=== PATIENT | male | born 1960 | race Caucasian/White ===

== ENCOUNTER 2019-01-28 17:00 | Outpatient (RCR) | payer BC, SELFPAY ==
--- NOTE | 2018-11-12 18:19 | HP.OTEVAL ---
Patient's Visit Information NAKIA BATEMAN is a 57 year old M, referred to Occupational Therapy by LEONEL Figueroa, with a diagnosis of Rt sided weakness. Date of Evaluation: 11/12/18 Occupational Therapist: Veronica Reeves - Subjective Subjective: Pt seen for initial occupational therapy evaluation for R side weakness after suffering ischemic stroke 09/08/18. Pt spent 32 days at [facility] facility then returned home w/ spouse and had home health therapy for 2.5 wks then started outpatient PT services. Pt lives w/ spouse in split level home 4 steps to enter bilateral handrails. Pt remaining on main level of home. Pt requires MIN to MOD A with BADLs at this time. Tub/shower w/ shower chair, grab bars, HHS. Comfort height commode. Pt has 24hr assist to assist with IADLs. Hobbies; E[employer] shopping, bike riding. R hand dominent. Pt has anxiety and has been taking [place] before all therapy sessions do to feeling confind with his R arm is wrapped or leg wrapped and not liking that feeling. - Objective Objective/Observation: limited ROM and strength and functional use of R arm. - ROM Shoulder: L WFL, R AROM flexion 20', abduction 10', R PROM flexion 70' abduction 50' Elbow: L WFL, R AROM -3/45', PROM 0/130' Wrist: L 47/94, R AROM 0/10', R PROM WFL ROM Comments: Pt has increased pain with PROM/AROM shoulder all planes. Pt states hx R shoulder sx yrs ago with limited AROM prior, but not as much as now. Pt unable to complete R AROM all digits R hand, PROM WFL R hand. - Strength Supervisor Display Fabrication: R 0#, L 90# Lateral Pinch: R 0#, L 16# Tripod Pinch: R 0#, L 16# - Edema Other: No edema noted - Sensation Sensation Comments: Slight numbness R hand and digits. Comes and goes inconsistant - Quick DASH-Disab of Arm,Shoulder& Hand Quick DASH Score: 77.2725 - Goals Goal:: Pt will progress w/ R hand on site manager strength by 15# to assist with self feeding tasks independently. Goal:: Pt will progress w/ R elbow AROM flexion by 50' to assist with UB dressing tasks independently. Pt will progress w/ R AROM wrist extension by 20' to assist with grooming tasks independently. Pt will progress w/ R shoulder AROM flexion by 50' to assist with BADLs by d/c from OT services. Goal:: Pt will be educated on appropriate HEP with good understanding and demo 100%x - Rehabilitation General Assessment: Pt demo decreased functional use of R hand s/p CVA. Pt demo decreased AROM/PROM R shoulder, elbow, wrist and hand. Pt demo decreased strength and indep w/ BADLs. Pt would benefit from direct occupational therapy services to increase ROM R UE, increase strength R UE shoulder, elbow, wrist/hand, educate on HEP, increase indep w/ BADLs to increase pts quality of life 2-3x/wk x 6wks Rehabilitation Potential: Good - Anticipated Interventions Anticipated Interventions: A/AAROM/PROM, Strengthening, Massage, Modalities, Orthoses, Joint Protection/Energy Conservation, Fine Motor Coord/Venkata, Neuro Reeducation, ADL Training, Education re assistive Equipment, Education re Diagnosis, Caregiver Training, Home Program - Visit Plan Frequency: 2-3x /Week Duration: 6 Weeks General Plan: increase ROM R UE, increase strength R UE shoulder, elbow, wrist/hand, educate on HEP, increase indep w/ BADLs TEXT: Thank you for the opportunity to evaluate your patient. For Medicare and Medicare HMO plans, please review the plan of care and approve it. It will need to be FAXED BACK to us at [phone] for Medicare purposes. Please let me know if there are questions or concerns regarding this plan of care. Physician Signature: Date:
--- NOTE | 2018-12-16 08:51 | OTREVAL_ITS ---
Ariela Little, CHEL-C, It has been my pleasure to treat NAKIA BATEMAN over the last 8 visits for Rt sided weakness. Please see the progress note below for an update on the occupational therapy plan of care! Subjective: Pt arrived stating doing well, has PT today too. Pt states has been doing variety of arm exerices, stretches and weightbearing R arm at home. Objective/Function: Completed OT Re-eval Pt making good progress with OT goals and demo increased independence with BADL tasks. Pt able to use R hand to hold jacket to assist with zipping tasks, continuing to require assist, but not dependent for task anymore. Pt able to grasp water bottle with R hand to use L hand to open lid using legs to support the bottle. Pt continues to require assist with all BADL tasks. Pt continues to have pain with ROM R shoulder but pain has minimized since inital evaluation. Pt progressing with ability to piter/doff his jacket with decreased amount of time needed and increased AROM of his R UE. Pt has progressed with AROM R shoulder flexion from initial evaluation 20' to 55' and R shoulder abduction from 10' to 52'. PROM R shoulder flexion from 70' to 73' and PROM R shoulder abduction 50' to 89'. R AROM elbow flexin from 45' to 112'. Pt continues to demo decreased functional use of R UE, decreased AROM and strength R UE and decreased independence with BADL tasks all indicating a need for continued skilled OT services to increase R UE AROM all joints, RUE strength, continue working on NDT R UE to increase functional use of R UE and independence with BADL tasks involving R UE to increase pts quality of life. 2-3x/wk for 6wks. Plan Frequency: 2-3x /Week Duration: 6 Weeks Plan: Would like to continue with OT services. Goals - Goals Goal:: Pt will progress w/ R hand hide and skin fleshing machine operator strength by 15# to assist with self feeding tasks independently. Goal:: Pt will progress w/ R elbow AROM flexion by 50' to assist with UB dressing tasks independently. Pt will progress w/ R AROM wrist extension by 20' to assist with grooming tasks independently. Pt will progress w/ R shoulder AROM flexion by 50' to assist with BADLs by d/c from OT services. Goal:: Pt will be educated on appropriate HEP with good understanding and demo 100%x Goal:: Pt will be able to piter/doff jacket w/ set up by d/c from OT services. Anticipated Interventions Anticipated Interventions: A/AAROM/PROM, Strengthening, Massage, Modalities, Orthoses, Joint Protection/Energy Conservation, Fine Motor Coord/Venkata, Neuro Reeducation, ADL Training, Education re assistive Equipment, Education re Diagnosis, Caregiver Training, Home Program Please do not hesitate to contact me at [phone] by phone or if you have questions or concerns regarding this new plan of care! Sincerely, Veronica Reeves
--- NOTE | 2018-12-29 13:19 | HP.OTCOM ---
OT Communication Note 12/29/[address] Ariela Little, REAL ESTATE AGENCY PRINCIPAL-C Pt continues to demonstrate limited R UE AROM and R UE strength. Pt continues to demonstrate limited independence with functional self care tasks. Pt able to piter jacket with L UE extra time needed, not able to engage zipper or manipulate zipper or grasp jacket appropriately with R hand. Pt reports at home able to piter shirt with buttons only using L hand, not able to complete w/ R UE. Pt reports able to piter elastic pants using only L hand however not able to manipulate fasteners. Pt reports requires assist from spouse to piter/doff regular socks and shoes. Pt reports that he requires assist with self feeding task, requires assist to cut food and using L hand (non-dominent) hand to eat and grasp utensils. Pt reports he requires assist to get in/out of tub/shower and bathing, pt reports able to complete grooming tasks using non dominent hand. 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 AROM R elbow 0/90'. AROM R wrist . Continue to use e-stim for R forearm/wrist/hand to increase functional movement R wrist. Pain R UE continues to limit pts functional use of R UE, levels of pain fluctuates, more pain in R shoulder than rest of arm. Pt would continue to benefit from direct occupational therapy services to increase R UE AROM and strength. He would benefit from direct occupational therapy services to increase independence with BADL tasks and educate on appropriate R UE HEP and DME/AE to assist with BADL's as needed and minimize pain of R UE and increase functional use of R UE. 1-2/x/wk x 6wks Sincerely, Veronica Up Viar Contact Information
--- NOTE | 2019-01-19 17:03 | HP.OTCOM ---
OT Communication Note 01/19/[address] Ariela Little, NUMERICAL TOOL PROGRAMMER-C Pt continues to be making progress with OT goals however continues to require skilled OT services. Pt states he thinks he is about 30% improved. Pt able to complete 21' of R AROM wrist extension with extra time needed to complete the movement with R arm supported. Pt continues to require assist with BADL tasks and bilateral coordiantion skills, requires assist with zipping tasks on jacket and spouse assist with donning socks and shoes. Pt continues to have pain R shoulder with movement and wearing supportive brace when ambulating longer distances. PROM R shoulder flexion 101' and R shoulder horizontal abduction PROM 93'. Pt progressing with arm bike using rm wrap to support R hand on bike handle to increase R UE strength and tolerance progressing with amount of time on arm bike and manual level 6-7. Pt using FEC to R wrist and hand to increase muscle function and extension of R hand/wrist. Pt would continue to benefit from direct occupational therapy services to increase functional use of R UE, increase ROM R UE, increase strength R UE, increase extension and functional grasp of R hand, increase indep with BADLs using AE and adaptive technique as needed. Pt requires further more skilled OT services to increase functional use of R hand to assist w/ BADLs to return to PLOF. Rec 1-2x/wk for 6 wks. Sincerely, Veronica Reeves Contact Information
--- NOTE | 2019-02-16 12:42 | HP.OTDCSUM_ITS ---
HP - OT D/C Summary It has been my pleasure to treat NAKIA BATEMAN under orders from GUILLERMINA FigueroaC, for the diagnosis of Rt sided weakness for a total of 21 visit(s). Please see the following information for a summary of their discharge status. - Overall Improvement % Improvement: 30 - Objective Objective/Function: increase functional use of R hand. - Goals Patient Goals: Regain Strength, Decrease Pain, Return to Work, Improve Fine Motor Skills, Use Hand/Wrist/Arm Normally Again, Increase ROM, Be More Independent in ADLS, Decrease Muscle Tone, Resume Former Household Responsibilities (Cooking,Cleaning,Yard, etc.), Resume Hobbies Goal:: Pt will progress w/ R hand wage and salary administrator strength by 15# to assist with self feeding tasks independently. Goal:: Pt will progress w/ R elbow AROM flexion by 50' to assist with UB dressing tasks independently. Pt will progress w/ R AROM wrist extension by 20' to assist with grooming tasks independently. Pt will progress w/ R shoulder A ROM flexion by 50' to assist with BADLs by d/c from OT services. Goal:: Pt will be educated on appropriate HEP with good understanding and demo 100%x Goal:: Pt will be able to piter/doff socks using AE as needed w/ set up. Goal:: Pt will be able to piter/doff jacket w/ set up by d/c from OT services. - Plan Plan: d/c OT POC - D/C Information Discharge Comments: Pt has made progress with OT goals, focusing on increasing R UE ROM all joints, R UE strength, decreasing pain R UE, increasing functional independence with BADL tasks to increase pts quality of life. Pt continues to demonstrate limited R UE AROM and R UE strength. Pt continues to demonstrate limited indepedence with functional self care tasks. Pt able to piter jacket with L UE extra time needed, not able to engage zipper or manipulate zipper or grasp jacket appropriately with R hand secondary to decreased ROM, strength and coordination. Pt reports at home able to piter shirt with buttons only using L hand, not able to complete w/ R UE dominent hand. Pt reports able to piter elas tic pants using only L hand however not able to manipulate fasteners. Pt requires assist from spouse to piter/doff regular socks and shoes. Pt's wage and salary administrator strength R hand 0#. PROM R shoulder flexion 0/101', AROM R elbow 0/93'. Pt able to complete 0/21' of R AROM wrist extension with extra time needed to complete the movement with R arm supported. Pt has been using estim to R forearm to increase active wrist extension. Continue to use e-stim for R forearm/wrist/hand to increase functional movement R wrist. Pain R UE continues to limit pts functional use of R UE. Pt continues to have pain R shoulder with movement and wearing supportive brace when ambulating longer distances. D/C OT POC secondary to cut by insurance and no more OT visits per insurance. D/C OT services. If there are questions or concerns regarding this patient's occupational therapy, please fell free to call me at [phone]. Thank you for the referral of this patient. Sincerely, Veronica Reeves
--- NOTE | 2019-02-16 12:43 | HP.OTCOM ---
OT Communication Note 02/16/[address] Ariela Little, ENVIRONMENTAL SCIENCE PROFESSOR-C Pt has made progress with OT goals, focusing on R UE ROM all joints, R UE strength, decreasing pain R UE, increasing functional independence with BADL tasks to increase pts quality of life, however has not meet all goals and is not back to his prior level of function. Pt continues to demonstrate limited R UE AROM and R UE strength. Pt continues to demonstrate limited indepedence with functional self care tasks. Pt able to piter jacket with L UE extra time needed, not able to engage zipper or manipulate zipper or grasp jacket appropriately with R hand. Pt reports at home able to piter shirt with buttons only using L hand, not able to complete w/ R UE dominent hand. Pt reports able to piter elastic pants using only L hand however not able to manipulate fasteners secondary to limited use of R UE. Pt requires assist from spouse to piter/doff regular socks and shoes. Pt's shoe stamper strength R hand 0#. PROM R shoulder flexion 0/101', AROM R elbow 0/93'. Pt able to complete 0/21' of R AROM wrist extension with extra time needed to complete the movement with R arm supported. Pt has been using estim to R forearm to increase active wrist extension. Continue to use e-stim for R forearm/wrist/hand to increase functional movement R wrist. Pain R UE continues to limit pts functional use of R UE. . Pt continues to have pain R shoulder with movement and wearing supportive brace when ambulating longer distances. Pt did not meet all goals secondary to cut by insurance before all goals met. Pt would continue to benefit from direct occupational therapy services to continue to increase AROM R UE all joints, decrease pain of R UE, increase strength and functional use of R UE to increase independence with BADL tasks to return to prior level of function. Sincerely, Veronica Reeves Contact Information
== END 2019-01-28 19:00 | disposition home or self-care (01) ==
LOC: OT 17:00
PROVIDERS: Family Provider Nurse Practitioner Primary Care; PCP Nurse Practitioner Primary Care; Visit Provider Nurse Practitioner Primary Care
DX: R53.1 Weakness (principal)
CPT/HCPCS: 97035; 97110; 97112; 97165; 97166; 97168; 97530

== ENCOUNTER 2020-04-25 11:00 | Outpatient (RCR) | payer BC, MEDICAID, SELFPAY ==
--- NOTE | 2019-10-19 14:51 | HP.OTEVAL ---
Patient's Visit Information JAREK BATEMAN is a 58 year old M, referred to Occupational Therapy by LEONEL Figueroa, with a diagnosis of Right sided weakness. Date of Evaluation: 10/19/19 Occupational Therapist: Shelli Salazar, OTR/L - Subjective Subjective: Jarek arrived and noted he has completed Ot previously at clinic . He is s/p CVA about a year ago. He has returned to OT due to continue progression of regaining function in R hand and wrist. He noted that he has return to continue to work on progression of R wrist and hand. - ADLs Dressing: Underwear, Overhead shirt, Button shirt Fasteners: Buttons Eating: Bring food to mouth, Use silverware, Cut food Bathing: Handle washcloth & soap Toileting: Manage clothing Kitchen: Chop with knife, Peel fruits & vegetables, Open jars, Open bottle caps, Ziplock bags, Lift gallon of milk Comments: He was R hand dominant prior to CVA but has since started to make L sided adaptations. He would like further us eof R hand and UE for ADl/IADLs. - Pain RUE 0 Pain Intensity Range: 0 - ROM Shoulder: flexion R 0-61, L WFL; ext R 0-20, L WFL; abd R 0-58, L WFL Elbow: R 0-75, L WFL Forearm: Supination R 0-30, L WFL; pronation WFL Wrist: flexion R 0-75, L WFL; Ext R 75-55 for total from flexed position of 20 deg CMC: unable to actively move R thumb. MP: unable to actively move R thumb. IP: unable to actively move R thumb. Radial Abduction: unable to actively move R thumb. Palmar Abduction: unable to actively move R thumb. MP: R hand about 20 degrees PIP: R hand about 20 degrees ROM Comments: Jarek completed against gravity active movements for assessment. HE is able to complete use of flexor tone to promote increased ability to make loose composite fist but is still within 2.5 inches of full composite fist when not allowing compensations of wrist to gain further movements. He is able to complete some extension tasks but flexor tone and weakness are limiting at this time. He is able to actively move R MCP about 20 degress as well as PIP about 20 degrees to promote loose composite fist. - Strength Shoulder: 3-/5 Elbow: 3-/5 Forearm: 2+/5 Wrist: 2+/5 Education And Training Manager: R 3, L 86 Lateral Pinch: R unable, L 17 Tripod Pinch: R unable, L 19 Tip-to-Tip Pinch: R unable, L 8 Strength Comments: does have ability to complete some minimal against gravity movements but flexor tone often outweigh. - Sensation Thumb: R 3.61, L 2.83 Index: R 2.83, L 2.83 Middle: R 2.83, L 2.83 Ring: R 3.61, L 2.83 Little: R 2.83, L 3.22 Stereognosis: Normal - Left Kinesthesia: Abnormal - Right, Normal - Left - Cognitive Skills Follows Directions: Yes - Attention Attention: Normal - In-Hand Manipulation Finger to Palm Translation: Severe - Right, Unable - Right, Normal - Left Palm to Finger Translation: Severe - Right, Unable - Right, Normal - Left Shift: Severe - Right, Normal - Left Rotation: Severe - Right, Unable - Right, Normal - Left - Stroke Specific Quality of Life Total SS-QOL Score: 21 - Quick DASH-Disab of Arm,Shoulder& Hand Quick DASH Score: 70.4525 - Goals Goal:: Jarek to increased RUE strength to 3+/5 for RUE and by 7 lbs of R grasp to promote strength and endurance needed to return to PLOF and promote ability to regain activive use fo RUE for ADL/IADLs 4/ 5 trials 80% by d/c. Goal:: Jarek to increased RUE AROM in against gravity positions by 10-20 degrees of all shoulder , elbow,forearm, and wrist and hand measurements to promote increased ROM needed to promote returning to PLOF for ADL/AIDsl by d/c. Goal:: Jarek to be mod I to complete use of graps and release to promote increased handling of self-care and daily objects 4/5 trials 80% of the time by d/c. Goal:: Jarek to be (I) to use adaptation and compensations of RUE to complete ADL/IADLs 4/5 trials 80% of the time by d/c to promote returning to PLOF and increased QOL. Goal:: Jarek to be mod I ot complete daily HEP to promote strength and endurance fo RUE 4/5 trials 80% of the time to promote returning to PLOF with increased ROM and strength by d/c. Goal:: Jarek to be mod I to complete use of FES unit at home with HEP for increased increments to promote tone managemetn techniques and increased ability to complete strengthening techniques 4/5 trials 80% of the time by d/c. - Rehabilitation General Assessment: Jarek completed OT evaluation on this date of 10/19/2019. He is s/p CVA about a year with residual right-sided weakness. He has ongoing weakness and limited range of motion of right UE. He has made some progression of ROM of RUE and further skilled OT warrented to promote increased ROM, strength, and ability to regain functional use of R hand and wrist for ADL/IADLS. He would beenfit from 2x weekly appointments for the next 1.5 months to promote addressing these concerns. Rehabilitation Potential: Good - Anticipated Interventions Anticipated Interventions: A/AAROM/PROM, Strengthening, Sensory Retraining, Modalities, Joint Protection/Energy Conservation, Ergonomic Education, Dynamic Sitting Balance, Fine Motor Coord/Venkata, Neuro Reeducation, Cognitive Skills, ADL Training, Caregiver Training, Home Program - Visit Plan Frequency: 2x /Week Duration: 6 Weeks General Plan: Jarek to complete skilled OT to promote increased faciliatory and tone management techniques to promote increased AROM needed to promote increased functional use of RUE. Further strengthening, AROM training, use of FES unit,a nd general ability to return to PLOF for ADL/IADLS to be complete to promote increased QOL . TEXT: Thank you for the opportunity to evaluate your patient. For Medicare and Medicare HMO plans, please review the plan of care and approve it. It will need to be FAXED BACK to us at [phone] for Medicare purposes. Please let me know if there are questions or concerns regarding this plan of care. Physician Signature: Date:
--- NOTE | 2019-12-14 14:18 | OTREVAL_ITS ---
Ariela Little, CHEL-C, It has been my pleasure to treat JAREK BATEMAN over the last 8 visits for Right sided weakness. Please see the progress note below for an update on the occupational therapy plan of care! Subjective: Arrived stating has had increased pain R shoulder otherwise everything is going well Objective/Function: Pt making good progress with OT goals. 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 Pt's R shoulder AROM flexion 0'/74', PROM 0'/121'. Pt R elbow AROM 0/110', PROM 0'/135'. R wrist AROM 0/68'. Pt R shoulder pain continues though pt states it is decreasing with exercise and stretching. Pt progressing with R UE strengthening exercises and tolerance with increased amount of reps however would continue to benefit from direct occupational therapy services to continue to increase R UE strength and ROM to assist with all BADL tasks with education on compensatory strategies and use of adaptive techniques as needed. Pt continues to be working on R UE HEP and would benefit from continued education on further R UE HEP with proper techniques and form and R UE strengthening and ROM activities to increase funcitonal use of R UE and decrease risk of contracture 1-2x/wk x 6wks (12 visits). Plan Frequency: 1-2x /Week Duration: 6 Weeks Visits in this POC: 12 Plan: Pt would continue to benefit from direct occupational therapy services to continue to increase R UE strength and ROM to assist with all BADL tasks with education on compensatory strategies and use of adaptive techniques as needed. Pt continues to be working on R UE HEP and would benefit from continued education on further R UE HEP with proper techniques and form and R UE strengthening and ROM activities to increase funcitonal use of R UE and decrease risk of contracture 1-2x/wk x 6wks (12 visits). 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 Goal:: Jarek to increased RUE strength to 3+/5 for RUE and by 7 lbs of R grasp to promote strength and endurance needed to return to PLOF and promote ability to regain activive use fo RUE for ADL/IADLs 4/ 5 trials 80% by d/c. Goal:: Jarek to increased RUE AROM in against gravity positions by 10-20 degrees of all shoulder , elbow,forearm, and wrist and hand measurements to promote increased ROM needed to promote returning to PLOF for ADL/AIDsl by d/c. Goal:: Jarek to be mod I to complete use of graps and release to promote increased handling of self-care and daily objects 4/5 trials 80% of the time by d/c. Goal:: Jarek to be (I) to use adaptation and compensations of RUE to complete ADL/IADLs 4/5 trials 80% of the time by d/c to promote returning to PLOF and increased QOL. Goal:: Jarek to be mod I ot complete daily HEP to promote strength and endurance fo RUE 4/5 trials 80% of the time to promote returning to PLOF with increased ROM and strength by d/c. Goal:: Jarek to be mod I to complete use of FES unit at home with HEP for increased increments to promote tone managemetn techniques and increased ability to complete strengthening techniques 4/5 trials 80% of the time by d/c. Anticipated Interventions Anticipated Interventions: A/AAROM/PROM, Strengthening, Sensory Retraining, Modalities, Joint Protection/Energy Conservation, Ergonomic Education, Dynamic Sitting Balance, Fine Motor Coord/Venkata, Neuro Reeducation, Cognitive Skills, ADL Training, Caregiver Training, Home Program Please do not hesitate to contact me at [phone] by phone or if you have questions or concerns regarding this new plan of care! Sincerely, Veronica Reeves
--- NOTE | 2020-01-06 13:05 | HP.OTREVAL ---
Ariela Little, CORE FILER-C, It has been my pleasure to treat JAREK BATEMAN over the last 3 visits for Right sided weakness. Please see the progress note below for an update on the occupational therapy plan of care! Subjective: name for BTE: PBinkered. Pt arrived stating doing well no pain, no concerns. Objective/Function: OT re assessment: Pt continues to be making good progress with OT goals. Pt has progressed with R home support worker strength from 10# to 25#. He has progressed with R shoulder flexion AROM from 0'/74' to 0'/82'. Pt has progressed w/ AROM R elbow flexion from 0'/110' to 0'/115'. Pt continues to have limited R wrist AROM extension 0'/68'. Pt continues to progress w/ R UE strengthening exercises while using BTE for R UE strengthening with increased resistance, time and further distance with exercises. He would continue to benefit from direct occupational therapy services to continue to increase functional use of R UE AROM, strength, use of NDT to assist with R hand, educate on HEP and proper gym equipment to incresae R UE to increase pt's quality of life 1-2x/wk x 4 wks (8 visits). Plan Frequency: 1-2x /Week Duration: 4 Weeks Visits in this POC: 8 Plan: se re-assessment for details. 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 Goal:: Jarek to increased RUE strength to 4-/5 for RUE and by 5 lbs of R grasp to promote strength and endurance needed to return to PLOF and promote ability to regain activive use fo RUE for ADL/IADLs 4/ 5 trials 80% by d/c. Goal:: Jarek to increased RUE AROM in against gravity positions by 10-20 degrees of all shoulder , elbow,forearm, and wrist and hand measurements to promote increased ROM needed to promote returning to PLOF for ADL/AIDsl by d/c. Goal:: Jarek to be mod I to complete use of graps and release to promote increased handling of self-care and daily objects 4/5 trials 80% of the time by d/c. Goal:: Jarek to be (I) to use adaptation and compensations of RUE to complete ADL/IADLs 4/5 trials 80% of the time by d/c to promote returning to PLOF and increased QOL. Goal:: Jarek to be independent with gym equipment program to increaes RUE strength with good understanding and demo 75%x by d/c from OT. Goal:: Jarek to be mod I to complete daily HEP to promote strength and endurance fo RUE 4/5 trials 80% of the time to promote returning to PLOF with increased ROM and strength by d/c. Goal:: Jarek to be mod I to complete use of FES unit at home with HEP for increased increments to promote tone managemetn techniques and increased ability to complete strengthening techniques 4/5 trials 80% of the time by d/c. Anticipated Interventions Anticipated Interventions: A/AAROM/PROM, Strengthening, Sensory Retraining, Modalities, Joint Protection/Energy Conservation, Ergonomic Education, Dynamic Sitting Balance, Fine Motor Coord/Venkata, Neuro Reeducation, Cognitive Skills, ADL Training, Caregiver Training, Home Program Please do not hesitate to contact me at [phone] by phone or if you have questions or concerns regarding this new plan of care! Sincerely, Veronica Reeves
--- NOTE | 2020-01-27 07:18 | OTREVAL_ITS ---
Ariela Little, CHEL-C, It has been my pleasure to treat JAREK BATEMAN over the last 6 visits for Right sided weakness. Please see the progress note below for an update on the occupational therapy plan of care! Subjective: pt arrives to session for re-eval for insurance to approve. pt was last re-evaluated on 01/06/20. pt reports he is SAMUEL with his HEP. Pt reports he is in the gym about three days a week working on UB strength. Pt states he continues to have numbness in his right UE at times and has concerns with limited return of his hand function. Objective/Function: As pt was just re assessed 01/06/20 No significat changes were made during this time. PT has become IND. with his HEP, use of his FES and strengthening on gym eq. as he is a member of a health and wellness program. OT re assessment: Pt continues to be making good progress with OT goals. Pt has progressed with R agricultural technician strength from 10# to 25#. He has progressed with R shoulder flexion AROM from 0'/74' to 0'/82'. Pt has progressed w/ AROM R elbow flexion from 0'/110' to 0'/139'. Pt continues to have limited R wrist AROM 0/68 and pt limited with right forearm supination at 35*. Pt demo with ability to grasp objects 3 times prior to the flexion tone decreasing his ability to extend his fingers to grasp objects. Pt continues to progress w/ R UE strengthening exercises while using BTE for R UE strengthening with increased resistance, time and further distance with exercises. He would continue to benefit from direct occupational therapy services to continue to increase functional use of R UE AROM, strength, use of NDT to assist with R hand, educate on HEP and proper gym equipment to incresae R UE to increase pt's quality of life 1-2x/wk x 4 wks (8 visits). 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 Goal:: Jarek to increased RUE strength to 4-/5 for RUE and by 5 lbs of R grasp to promote strength and endurance needed to return to PLOF and promote ability to regain activive use fo RUE for ADL/IADLs 4/ 5 trials 80% by d/c. Goal:: Jarek to increased RUE AROM in against gravity positions by 10-20 degrees of all shoulder , elbow,forearm, and wrist and hand measurements to promote increased ROM needed to promote returning to PLOF for ADL/AIDsl by d/c. PROGRESSING Goal:: Jarek to be mod I to complete use of graps and release to promote increased handling of self-care and daily objects 4/5 trials 80% of the time by d/c. PROGRESSING pt at 70% Goal:: Jarek to be (I) to use adaptation and compensations of RUE to complete ADL /IADLs 4/5 trials 80% of the time by d/c to promote returning to PLOF and increased QOL. GOAL MET Goal:: Jarek to be independent with gym equipment program to incremicheles SHANE str aaron with good understanding and demo 75%x by d/c from OT. Goal MET Goal:: Jarek to be mod I to complete daily HEP to promote strength and endurance fo RUE 4/5 trials 80% of the time to promote returning to PLOF with increased ROM and strength by d/c. Goal MET Goal:: Jarek to be mod I to complete use of FES unit at home with HEP for increased increments to promote tone managemetn techniques and increased ability to complete strengthening techniques 4/5 trials 80% of the time by d/c. GOAL MET Anticipated Interventions Anticipated Interventions: A/AAROM/PROM, Strengthening, Sensory Retraining, Modalities, Joint Protection/Energy Conservation, Ergonomic Education, Dynamic Sitting Balance, Fine Motor Coord/Venkata, Neuro Reeducation, Cognitive Skills, ADL Training, Caregiver Training, Home Program Please do not hesitate to contact me at [phone] by phone or if you have questions or concerns regarding this new plan of care! Sincerely, Ashly Bell, OTR/L, CHT
--- NOTE | 2020-03-29 07:53 | HP.OTREVAL ---
Ariela Little, CHEL-C, It has been my pleasure to treat JAREK BATEMAN over the last 1 visits for Right sided weakness. Please see the progress note below for an update on the occupational therapy plan of care! Subjective: Pt states he feels is arm is stronger. pt states he is going to the gym and doing exercises in the pool- feels pt approved for 2 visits but unable to attend last visit due to family conflict. pt rescheduled but was outside of insurance allowed end date. pt is doing the row machine at the gym with 20# doing 3 sets of 15. pt enjoys working in the gym Objective/Function: As pt was just re assessed 01/27/20 No significat changes were made during this time. PT has become IND. with his HEP, use of his FES and strengthening on gym eq. as he is a member of a health and wellness program. OT re assessment: Pt continues to be making good progress with OT goals. Pt has progressed with R professor of history strength from 10# to 25#. He has progressed with R shoulder flexion AROM from 0'/74' to 0'/82'. Pt has progressed w/ AROM R elbow flexion from 0'/110' to 0'/139'. Pt continues to have limited R wrist AROM 0/68 and pt limited with right forearm supination at 35*. Pt demo with ability to grasp objects 3 times prior to the flexion tone decreasing his ability to extend his fingers to grasp objects. Pt continues to progress w/ R UE strengthening exercises while using BTE for R UE strengthening with increased resistance, time and further distance with exercises. He would continue to benefit from direct occupational therapy services to continue to increase functional use of R UE AROM, strength, use of NDT to assist with R hand, educate on HEP and proper gym equipment to incresae R UE to increase pt's quality of life 1-2x/wk x 4 wks (8 visits). 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 Goal:: Jarek to increased RUE strength to 4-/5 for RUE and by 5 lbs of R grasp to promote strength and endurance needed to return to PLOF and promote ability to regain activive use fo RUE for ADL/IADLs 4/ 5 trials 80% by d/c. Goal:: Jarek to increased RUE AROM in against gravity positions by 10-20 degrees of all shoulder , elbow,forearm, and wrist and hand measurements to promote increased ROM needed to promote returning to PLOF for ADL/AIDsl by d/c. PROGRESSING Goal:: Jarek to be mod I to complete use of graps and release to promote increased handling of self-care and daily objects 4/5 trials 80% of the time by d/c. PROGRESSING pt at 70% Goal:: Jarek to be (I) to use adaptation and compensations of RUE to complete ADL/IADLs 4/5 trials 80% of the time by d/c to promote returning to PLOF and increased QOL. GOAL MET Goal:: Jarek to be independent with gym equipment program to increaes RUE strength with good understanding and demo 75%x by d/c from OT. Goal MET Goal:: Jarek to be mod I to complete daily HEP to promote strength and endurance fo RUE 4/5 trials 80% of the time to promote returning to PLOF with increased ROM and strength by d/c. Goal MET Goal:: Jarek to be mod I to complete use of FES unit at home with HEP for increased increments to promote tone managemetn techniques and increased ability to complete strengthening techniques 4/5 trials 80% of the time by d/c. GOAL MET Anticipated Interventions Anticipated Interventions: A/AAROM/PROM, Strengthening, Sensory Retraining, Modalities, Joint Protection/Energy Conservation, Ergonomic Education, Dynamic Sitting Balance, Fine Motor Coord/Venkata, Neuro Reeducation, Cognitive Skills, ADL Training, Caregiver Training, Home Program Please do not hesitate to contact me at [phone] by phone or if you have questions or concerns regarding this new plan of care! Sincerely, Ashly Bell, OTR/L, CHT
--- NOTE | 2020-04-25 12:56 | HP.OTDCSUM_ITS ---
It has been my pleasure to treat JAREK BATEMAN under orders from LEONEL Figueroa, for the diagnosis of Right sided weakness for a total of 2 visit(s). Please see the following information for a summary of their discharge status. % Improvement: 50 Objective/Function: PT has become IND. with his HEP, use of his FES and strengthening on gym eq. as he is a member of a health and wellness program. OT re assessment: Pt continues to be making good progress with OT goals. Pt has progressed with R writing center director strength from 10# to 25#. He has progressed with R shoulder flexion AROM from 0'/74' to 0'/82'. Pt has progressed w/ AROM R elbow flexion from 0'/110' to 0'/139'. Pt continues to have limited R wrist AROM 0 and pt limited with right forearm supination at 35*. pt demo MOD tone in right forearm. fingers flaccid. pt demo the ability to pickle pumper small flat- object from diffent levels-. pt demo increase in UB strength but has plateaued wtih progress at this time.Based on chart review, objective measurments and clinical reasoning pt has plateaued with his progress. pt will be D/C from OT but cont with HEP. 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 Goal:: Jarek to increased RUE strength to 4-/5 for RUE and by 5 lbs of R grasp to promote strength and endurance needed to return to PLOF and promote ability to regain activive use fo RUE for ADL/IADLs 4/ 5 trials 80% by d/c. Goal:: Jarek to increased RUE AROM in against gravity positions by 10-20 degrees of all shoulder , elbow,forearm, and wrist and hand measurements to promote increased ROM needed to promote returning to PLOF for ADL/AIDsl by d/c. PROGRESSING Goal:: Jarek to be mod I to complete use of graps and release to promote increased handling of self-care and daily objects 4/5 trials 80% of the time by d/c. PROGRESSING pt at 70% Goal:: Jarek to be (I) to use adaptation and compensations of RUE to complete ADL/IADLs 4/5 trials 80% of the time by d/c to promote returning to PLOF and increased QOL. GOAL MET Goal:: Jarek to be independent with gym equipment program to increaes RUE strength with good understanding and demo 75%x by d/c from OT. Goal MET Goal:: Jarek to be mod I to complete daily HEP to promote strength and endurance fo RUE 4/5 trials 80% of the time to promote returning to PLOF with increased ROM and strength by d/c. Goal MET Goal:: Jarek to be mod I to complete use of FES unit at home with HEP for increased increments to promote tone managemetn techniques and increased ability to complete strengthening techniques 4/5 trials 80% of the time by d/c. GOAL MET Plan: D/C pt with HEP. use of gym. home estim unit. weight bearing to right UE. PROM/AAROM If there are questions or concerns regarding this patient's occupational therapy, please fell free to call me at [phone]. Thank you for the referral of this patient. Sincerely, Ashly Bell, OTR/L, CHT
== END 2020-04-25 19:00 | disposition home or self-care (01) ==
LOC: OT 11:00
PROVIDERS: PCP Nurse Practitioner Primary Care; Referring Provider Nurse Practitioner Primary Care; Visit Provider Nurse Practitioner Primary Care
DX: R53.1 Weakness (principal); Z86.73 Personal history of transient ischemic attack (TIA), and cerebral infarction without residual deficits
CPT/HCPCS: 97110; 97112; 97140; 97166; 97168; 97530

== ENCOUNTER 2020-10-27 15:13 | Outpatient (RCR) | payer BC, MEDICAID, SELFPAY ==
[2020-10-20 09:53] VITALS: BMI 27.1
[2020-10-27] MEDS: COVID-19 VACC, MRNA(PFIZER)/PF 30 MCG/0.3 ML SYRINGE IM (10:24)
[2020-11-17] MEDS: COVID-19 VACC, MRNA(PFIZER)/PF 30 MCG/0.3 ML SYRINGE IM (10:08)
== END 2020-10-27 23:59 ==
LOC: IMMUN 15:13
PROVIDERS: PCP Nurse Practitioner Primary Care; Referring Provider Family Medicine; Visit Provider Family Medicine
DX: Z23 Encounter for immunization (principal)
CPT/HCPCS: 0001A; 0002A; 91300

== ENCOUNTER → 2020-12-22 10:15 | Outpatient (CLI) | payer BC, MEDICAID, SELFPAY ==
[2020-10-20 09:53] VITALS: BMI 27.1
--- NOTE | 2020-12-22 10:18 | MRI_ITS ---
STUDY: MRI CERVICAL SPINE WITHOUT CONTRAST REASON FOR EXAM: Male, 60 years old. Pain, cervical spinal stenosis TECHNIQUE: Standardized fat and water weighted pulse sequences were obtained in the sagittal and axial planes. COMPARISON: X-ray 10/20/2020 FINDINGS: Normal foramen magnum and brainstem-cervical cord junction. Normal craniovertebral junction. Normal anterior atlantoaxial articulation. Normal odontoid process. Normal cervical lordosis. Normal vertebral bodies and posterior osseous elements. C2-3: Normal endplates. Normal disc height, signal and morphology. Normal central canal and intervertebral neural foramina. C3-4: Moderate broad disc osteophyte complex produces moderate spinal stenosis with abutment the central spinal cord and mild bilateral neural foraminal stenosis. C4-5: Moderate broad disc osteophyte complex produces moderate spinal stenosis with abutment the central spinal cord and mild bilateral neural foraminal stenosis. C5-6: Moderate broad disc osteophyte complex produces moderate spinal stenosis with abutment the central spinal cord and mild right neural foraminal stenosis. C6-7: Partial Klippel-Feil deformity with fusion of the posterior disc space with anatomic alignment and no spinal stenosis or neural foraminal stenosis. C7-T1: Normal endplates. Normal disc height, signal and morphology. Normal central canal and intervertebral neural foramina. Normal cervical cord. Normal visualized soft tissue structures. MRI/Spine Cervical (Routine) IMPRESSION: Multilevel degenerative changes, as described above. Electronically Signed: Tyree Butt MD at 12:51 EDT Tel , Service support ,
== END ==
PROVIDERS: PCP Nurse Practitioner Primary Care
DX: M48.02 Spinal stenosis, cervical region (principal)
CPT/HCPCS: 72141

== ENCOUNTER 2023-06-27 08:18 | Day surgery (SDC) | payer MEDICARE, MEDICAID, SELFPAY ==
[2023-06-27] VITALS (8 sets, daily range): BP systolic 87–124; BP diastolic 53–70; PULSE 51–59; RESP 14–18; TEMP 36.1–36.6; O2SAT 95–100; BMI 27.3
--- NOTE | 2023-06-27 08:45 | RAD_ITS ---
STUDY: X-RAY - RIGHT FOOT CLINICAL: Male, 62 years old. CORRECTION OF R FOOT FIRST AND THIRD HAMMER TOES TECHNIQUE: 1 fluoroscopic spot view(s) of the foot. COMPARISON: None. FINDINGS: 2 screws transfix the phalanges of the first and third digits. RAD/Foot min 3 Views IMPRESSION: Please correlate with clinical service. Electronically Signed: Ti Hurtado MD at 23:56 EST ,
[2023-06-27] MEDS: Lactated Ringers 1,000 ML 15 ML IV (08:47)
--- NOTE | 2023-06-27 09:10 | PCM.DC ---
Discharge Instructions Diet Discharge Diet: Light diet - advance as tolerated Activity Discharge Activity: May Not Drive Weight Bearing Status: Partial weight bearing (Limit weightbearing on right foot as much as possible. ) Keep extremity elevated above heart level: Right Leg (Keep right foot elevated for at least 50 minutes of every hour) Dressing / Incision Call your doctor if your incision/area has: Sudden Increased Bleeding and Foul Smelling Discharge Call your doctor if you observe: Fever of 101 or Higher, Shortness of breath, Chest pain, Increased palpitations (irregular heartbeat), Calf discomfort and Uncontrolled pain Change Dressing in: do not change dressing Remove Dressing in: do not remove dressing Cleanse incision/area with: Keep Dressing Clean & Dry Follow Up Care Please Follow Up With: Valentino Naranjo DPM When: Next week in office, sooner if needed. Call Dr. Naranjo if needed: [phone] (office), (cell) Test Results: Test results from this visit will be discussed in further detail at your follow-up appointment, if applicable. Discharge Plan Admission Attending Provider: Valentino Naranjo Primary Care Provider: Ariela Little NP Discharge Orders/Prescriptions Prescriptions: No Action metoprolol tartrate 50 mg tablet 25 mg PO BID Patient Comments: TAKE 1/2 TABLET BY MOUTH TWICE A DAY amlodipine 2.5 mg tablet 2.5 mg PO BID Patient Comments: TAKE 1 TABLET BY MOUTH TWICE A DAY atorvastatin 40 mg tablet 40 mg PO QHS Patient Comments: TAKE 1 TABLET BY MOUTH EVERY DAY fluoxetine 20 mg tablet 20 mg PO DAILY Patient Comments: TAKE 1 TABLET BY MOUTH EVERY DAY aspirin 81 mg tablet,delayed release (DR/EC) 81 mg PO DAILY calcium carbonate 600 MG tablet 600 mg PO DAILY lisinopril 10 MG tablet 20 mg PO DAILY hydrochlorothiazide 25 MG tablet 25 mg PO DAILY potassium chloride 10 MEQ tablet 20 meq PO TID tamsulosin 0.4 MG capsule 0.4 mg PO DAILY omeprazole 20 mg capsule,delayed release(DR/EC) 20 mg PO DAILY PRN PRN (Reason: GERD) Patient Comments: TAKE 1 CAPSULE BY MOUTH EVERY DAY Referrals / Follow Up: Ariela Little NP, ELECTRICAL DESIGN TECHNOLOGIST-C [Primary Care Provider] - Disposition Discharge Orders: Discharge Patient (Routine); Ordered 06/27/23 Ordered By: Dr. Valentino Naranjo
--- NOTE | 2023-06-27 09:12 | PCM.OPRPT ---
Report of Operation Date of Procedure: 06/27/23 Pre-Operative Diagnosis: Hammer toe of the 1st and 3rd toes right foot Post-Operative Diagnosis: Same Surgery/Procedure Performed:: Arthrodesis right 1st toe interphalangeal joint, arthrodesis right 3rd toe - correction of hammer toes Surgeon: Valentino Naranjo inspector returned materials: Lj Type of Anesthesia: Local and MAC Specimen's removed: Bone from right 1st and 3rd toes sent to pathology Estimated Blood Loss (mL): 1mL Description of Procedure: Indications: This is a 62 year-old gentleman with contracture of the right 1st and 3rd toes which is causing difficulty with ambulation and weightbearing. This persists despite nonsurgical care. We discussed the options, and he elected to proceed with 1st toe interphalangeal joint arthrodesis, as well as 3rd toe arthroplasty vs arthrodesis correction of hammer toes.? We reviewed all the possible benefits, risks, goals and expectations.? He expressed understanding and agreement.? We also reviewed the typical postoperative and expected postoperative course.? He expressed understanding and agreement and wanted to proceed forward with surgical intervention.? All alternative options were discussed with him and the possible benefits, risks of the alternative options were discussed with him as well in detail.? He expressed understanding and agreement and again want to proceed for surgical intervention.? The consent forms were reviewed with him and he freely signed them. No guarantees were given or implied. No warranties were given. Operative Procedure: The patient was brought back into the operating room and was placed onto the operative table in the supine position.? He was carefully secured to the operating room table with safety belt around his waist.? The patient did receive 2 g of intravenous cefazolin for antibiotic prophylaxis, the patient received MAC anesthesia per the anesthesiologist.? A well-padded pneumatic tourniquet was applied around the right ankle. A 1st and 3rd ray block was completed using 15mL of 0.5% Bupivacaine plain after the skin was cleansed with 70% Isopropyl alcohol. The right foot was scrubbed, prepped and draped in the usual aseptic fashion.? Further attention was directed to the right foot, there was significant contracture of the 3rd toe and 1st toe when simulating weightbearing.? The foot was elevated for 3 minutes and the left ankle pneumatic tourniquet was inflated to 250 mmHg.? Right 1st toe interphalangeal joint arthrodesis: An incision was made using a 15 scalpel blade overlying the dorsal medial aspect of the hallux interphalangeal joint (IPJ), medial to the extensor hallucis longus tendon.? Careful dissection was completed down to the IPJ and it was incised dorsally. The capsule was partially reflected and the joint was identified. The cartilage was visualized of the IPJ 1st toe, there was noted to be degenerative changes with cartilage thin and arthritic, the cartilage was resected using a curette and sagittal saw. The prepped surfaces were further prepped using a kwire to drill the surfaces to slitter creaser slotter helper fusion. The toe was temporarily fixated using a kwire and and a 3.5mm Arthrex FT headless screw was placed across the fusion site compressing the fusion site holding it rigid and in good position. At this time, the fusion site was stable, good bone to bone contact and good fixation present.? Intraoperative fluoroscopy confirmed this as well.?The toe was in excellent position. The site was flushed out with copious amounts of normal saline solution. The subcutaneous tissue was reapproximated using 4-0 Vicryl and the skin was reapproximated using 4-0 Nylon. Right 3rd toe arthrodesis: A skin incision was made longitudinally using a 15 blade to the dorsal toe. Dissection was completed down to the extensor digitorum longus and it was split trasversly at level of the proximal interphalangeal joint a 15 blade. The tendon was reflected. The head of the proximal phalanx was resected and the cartilage was resected from the base of the middle phalanx. The toe was fixated using 1 x 2.5mm FT headless screw. At this time the toe was straight in rectus position in alignment with the other toes, holding it rigid and in good position. At this time, the site was stable, good bone to bone contact and good fixation present. There is good bone to bone compression across the fusion site. This was confirmed with intraoperative fluoroscopy. The site was flushed out with copious amounts of normal saline solution. The skin was reapproximated using 4-0 Nylon.? Of note the resected bone from the 1st and 3rd toes was sent to pathology as specimen. Also all vital structures including all vital neurovascular structures were properly identified and protected as needed. The pneumatic tourniquet was deflated (total tourniquet time was 73 minutes). There was immediate return of warmth and perfusion to the foot and to all five toes of the foot. CFT was < 2 seconds to all toes with normal temperature present. A dressing was applied which consisted of Betadine soaked Adaptic, 4x4 gauze, Kerlix and an Rubens bandage. The patient tolerated the above procedure well and anesthesia well with no complications. The patient was transported from the operative room to the recovery room with vital signs stable and in good condition. Post operative orders were placed, and post operative instructions were reviewed with the patient and his who was with him today (verbal and written). Keep foot elevated for at least 50 minutes of every hour. Keep dressing clean, dry and intact. He declined a prescription for pain medication. Patient to follow up next week in office, sooner if needed. Grafts/Implants Used: 2 x Arthrex FT cannulated screws Complications None
[2023-06-27] MEDS: Cefazolin 2 GM in 0.9% Normal Saline (100mL Bag) 100 ML IV (09:25)
--- NOTE | 2023-06-27 09:40 | BON_PTH ---
PATIENT: NAKIA BATEMAN LOC: [facility] [place] U#:[id number] AGE/SX: 62/M ROOM: RE06/27/[address]: Dr. Valentino Naranjo DPM : 1960 BED: DIS: 06/27/2023 SPEC #: [id number] RECD: 06/27/23 12:10 STATUS: KAT REDaniela #: [id number] MADHAV: 06/27/23 09:[address]: Valentino Naranjo DEPT: SURGICAL PATHOLOGY RECD BY: Saad Palacios ENTERED: 06/27/23 13:02 SP TYPE: Bone OTHR DR: Ariela Little, MANAGER USER INTERFACE-C Tissues: Toe, NOS Procedures: Decalcification bone/plaque Surgery Specimen Level IV HEADER OPERATION: Correction of right foot first and third hammertoes PRE-OP DIAGNOSIS: Hammertoe first and third toes TISSUE SUBMITTED: Bone right first and third hammertoes MICROSCOPIC DIAGNOSIS Bone, right first and third hammertoes, excisions: Fragments of osseocartilaginous tissue with no significant pathologic change (clinically hammertoe deformities). AM:rigoberto 07/02/2023 MICROSCOPIC DESCRIPTION Slides are reviewed. GROSS DESCRIPTION Received in fixative is one container labeled with the patient's name and designated bone right fifth and third hammertoes. The specimen consists of multiple irregular fragments of malone-white bone that in aggregate measure 3.0 x 2.0 x 0.2 cm. The specimen is totally submitted in one cassette after decalcification. / AM:rigoberto 06/27/2023 TC:5 CPT: 59423, 76376
[2023-06-27] MEDS: Bupivacaine Mpf 0.5% 30 ML VIAL (10:00)
--- NOTE | 2023-06-27 11:25 | RAD_ITS ---
STUDY: X-RAY - RIGHT FOOT CLINICAL: Male, 62 years old. post op TECHNIQUE: 3 view(s) of the foot. COMPARISON: None. FINDINGS: Normal talus, calcaneus, and tarsal bones. Normal visualized subtalar, talonavicular, calcaneocuboid, tarsal and tarsometatarsal articulations. Normal metatarsi. Screws transfix the distal phalanges of the first and third digits. Normal metatarsophalangeal joint of the great toe. Normal tibial and fibular sesamoid bones. Normal interphalangeal joint of the great toe. Normal phalanges of the great toe. Normal second through fifth metatarsophalangeal joints. Normal interphalangeal joints and phalanges of the lesser toes. The soft tissue structures are unremarkable. RAD/Foot min 3 Views IMPRESSION: Postop changes first and third digits otherwise no acute disease Electronically Signed: Ti Hurtado MD at 23:55 EST ,
== END 2023-06-27 12:51 | disposition home or self-care (01) ==
LOC: SDC 08:26 → AC 08:28
PROVIDERS: PCP Nurse Practitioner Primary Care; Referring Provider Podiatrist; Visit Provider Podiatrist
PROC: (CPT 28285; principal; 2023-06-27 09:25)
DX: M20.41 Other hammer toe(s) (acquired), right foot (principal); M50.30 Other cervical disc degeneration, unspecified cervical region; Z79.899 Other long term (current) drug therapy; Z79.82 Long term (current) use of aspirin; Z86.73 Personal history of transient ischemic attack (TIA), and cerebral infarction without residual deficits; F41.9 Anxiety disorder, unspecified; F32.A Depression, unspecified; K21.9 Gastro-esophageal reflux disease without esophagitis; E78.00 Pure hypercholesterolemia, unspecified
CPT/HCPCS: 28755; 28285; 01480; 73630; 76000; 88305; 88311; C1713; J7120; J2405